=== PATIENT | female | born 1990 | race Two or more races ===

== ENCOUNTER 2023-02-14 02:48 | Emergency (ER) | payer OTHER, SELFPAY ==
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
[2023-02-14 02:54] VITALS: BP 127/99; BP 160/90; PULSE 107; PULSE 128; RESP 26; TEMP 36.6; O2SAT 100; O2SAT 99; BMI 33.6
--- NOTE | 2023-02-14 02:54 | ECG_ITS ---
Test Reason : HEAD PAIN Blood Pressure : / mmHG Vent. Rate : 098 BPM Atrial Rate : 098 BPM P-R Int : 148 ms QRS Dur : 092 ms QT Int : 348 ms P-R-T Axes : 033 052 011 degrees QTc Int : 444 ms Poor data quality, interpretation may be adversely affected Normal sinus rhythm Normal ECG No previous ECGs available Referred By: Lul Wilson Electronically Signed By:GABRIEL DAVILA MD
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
[2023-02-14 03:20] LABS: Basophils Absolute Auto 0.1 X10*3/uL (0.0-0.2); Basophils Percent Auto 0.5 % (0-2); Eosinophils Absolute Auto 0.1 X10*3/uL (0.0-0.4); Eosinophils Percent Auto 0.9 % (0-4); Hematocrit 36.2 % (37.0-47.0); Hemoglobin 11.5 g/dl (12.0-16.0); Imm Gran Abs Auto 0.06 X10*3/uL (0.00-0.03); Imm Gran Pct Auto 0.5 % (0.0-0.4); Lymphocytes Absolute Auto 5.1 X10*3/uL (1.2-4.9); Lymphocytes Percent Auto 39.4 % (20-40); Mean Corpuscular HGB Conc 31.8 g/dl (31.0-35.0); Mean Corpuscular Hemoglobin 26.8 pg (27.0-33.0); Mean Corpuscular Volume 84.4 fL (80.0-98.0); Monocytes Percent Auto 7.9 % (2-11); Neutrophils Absolute Auto 6.5 x10*3/uL (2.0-8.3); Neutrophils Percent Auto 50.8 % (45-73); Platelet Count 424 X10*3/uL (160-400); Red Blood Count 4.29 X10*6/uL (4.20-5.50); Red Cell Distribution Width 19.1 % (11.0-16.0); SCAN SMEAR FLAG 1; White Blood Count 12.8 X10*3/uL (4.8-10.8)
[2023-02-14 03:21] LABS: MANUAL DIFF FLAG NO
[2023-02-14 03:28] LABS: Partial Thromboplastin Time 34.5 SEC (26.0-36.4)
[2023-02-14 03:31] LABS: Appearance Urine Clear; Color Urine Yellow; Glucose Urine UA Negative (Negative); Leukocyte Esterase Urine Negative (Negative); Nitrite Urine Negative (Negative); PH 5.5 (5.0-9.0); Specific Gravity - Urine 1.015 (1.005-1.025); UMIC TRIGGER UACC YES; Urine Blood Large (3+) (Negative); Urine Ketones Negative (Negative); Urine Protein Trace mg/dL (Neg-Trace)
[2023-02-14 03:33] LABS: UPreg QC Valid YES; Urine Pregnancy NEGATIVE (NEGATIVE)
[2023-02-14 03:36] LABS: Bacteria Urine None Seen (None Seen); Hyaline Casts Urine 0-2 /LPF (0-2); RBC Urine >20 /HPF (0-2); Squamous Epithelial Cell Urine 0-2 /HPF (0-2); WBC Urine 0-5 /HPF (0-5)
[2023-02-14 03:36] LABS: Alanine Aminotransferase 13 U/L (0-31); Albumin Level 4.5 g/dL (3.5-5.0); Alkaline Phosphatase 56 U/L (39-117); Anion Gap 15 (12-20); Aspartate Amino Transferase 17 U/L (5-31); Bilirubin Total 0.2 mg/dL (0.0-1.0); Blood Urea Nitrogen 9 mg/dL (9-16); Carbon Dioxide 21 mmol/L (22-29); Chloride 110 mmol/L (96-108); Creatinine Clr Calc Pharmacy 127.2; Estimated Glomerular Filt Rate > 60; Glucose Random 106 mg/dL (60-115); Lipase 28 U/L (8-78); Potassium 3.5 mmol/L (3.3-5.1); Sodium 142 mmol/L (135-145); Total Protein 7.8 g/dL (6.5-8.0)
[2023-02-14 03:37] LABS: Ethanol 132 mg/dL
[2023-02-14 03:40] LABS: Amphetamine Screen Urine Not Detected (Not Detect); Barbiturates, Urine Not Detected (Not Detect); Benzodiazepines Screen Urine Not Detected (Not Detect); Cannabinoid Screen Urine POSITIVE (Not Detect); Cocaine Screen Urine Not Detected (Not Detect); Fentanyl, urine Not Detected (Not Detect); Opiate Screen Urine Not Detected (Not Detect); Phencyclidine Screen Urine Not Detected (Not Detect)
[2023-02-14 05:29] VITALS: BP 112/61; PULSE 91; RESP 17; TEMP 36.6; O2SAT 98
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
[2023-02-14] MEDS: Ketorolac Tromethamine 15 MG/ML VIAL 30 MG IVPUSH (05:37)
--- NOTE | 2023-02-14 06:10 | PC.NURSE ---
late entry- pt medicated according to oct. lights dimmed pt calm and cooperative.
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
[2023-02-14 06:40] VITALS: BP 130/87; PULSE 78; RESP 11; TEMP 36.6; O2SAT 100
--- NOTE | 2023-02-14 07:05 | PC.NURSE ---
pt ambulatory at discharge. iv removed at discharge. pt calm and cooperative. pt reports feeling safe to leave. pt provided with discharge paperwork. pt verbalized understanding of discharge plan
== END 2023-02-14 07:06 | disposition home or self-care (01) ==
PROVIDERS: Emergency Provider Emergency Medicine Emergency Medical Services
DX: S09.90XA Unspecified injury of head, initial encounter (principal); S00.83XA Contusion of other part of head, initial encounter; S40.022A Contusion of left upper arm, initial encounter; Y04.2XXA Assault by strike against or bumped into by another person, initial encounter; F17.210 Nicotine dependence, cigarettes, uncomplicated; F12.90 Cannabis use, unspecified, uncomplicated; Y93.89 Activity, other specified; Y92.009 Unspecified place in unspecified non-institutional (private) residence as the place of occurrence of the external cause; Y99.9 Unspecified external cause status
CPT/HCPCS: 36415; 70450; 71045; 72125; 73030; 73060; 80053; 80307; 81001; 81025; 83690; 85025; 85610; 85730; 93005; 96374; 99284; 99285; J1885